=== PATIENT | male | born 1980 | race Hispanic/Latino ===

== ENCOUNTER 2020-07-29 11:13 | Emergency (ER) | payer SELFPAY ==
[2020-07-29 14:52] LABS: Alanine Aminotransferase 41 units/L (7-56); Albumin 4.8 g/dL (3.9-5); Blood Urea Nitrogen 11 mg/dL (9-20); Calcium 9.6 mg/dL (8.4-10.2); Hemolysis Index 4
[2020-07-29 14:54] LABS: BUN/Creatinine Ratio 16
--- NOTE | 2020-07-29 15:36 | Emergency Department Report ---
ED General Adult HPI - General Chief complaint: Hyperglycemia Stated complaint: ELEVATED BLOOD GLUCOSE PUI?: No Time Seen by Provider: 07/29/20 15:25 Source: patient Mode of arrival: Ambulatory Limitations: No Limitations - History of Present Illness Initial comments: Chief complaint: "My sugar is high." HPI: This is a 40-year-old male without significant past medical history who presents with mild fatigue. His friend checked his blood glucose which was elevated greater than 500. He took a friend's medication prior to arrival today. He took Metformin 1000 mg p.o. He feels better now. He denies any symptoms at this time. -: Gradual, days(s) (Several days) Improves with: none, medication (Medication) Worsens with: none Associated Symptoms: other (Fatigue) - Related Data Previous Rx's Medication Instructions Recorded Last Taken Type Metformin HCl [metFORMIN] 1 tab PO BID 90 Days #180 tablet 07/29/20 Unknown Rx Allergies Allergy/AdvReac Type Severity Reaction Status Date / Time No Known Allergies Allergy Unverified 07/29/20 11:32 ED Review of Systems ROS: Stated complaint: ELEVATED BLOOD GLUCOSE Other details as noted in HPI Comment: All other systems reviewed and negative Constitutional: malaise. denies: fever Respiratory: denies: cough, shortness of breath Cardiovascular: denies: chest pain Gastrointestinal: denies: abdominal pain, nausea, vomiting ED Past Medical Hx - Past Medical History Previous Medical History?: No - Surgical History Past Surgical History?: No - Social History Smoking Status: Unknown if ever smoked - Medications Home Medications: Home Medications Medication Instructions Recorded Confirmed Last Taken Type Metformin HCl [metFORMIN] 1 tab PO BID 90 Days #180 tablet 07/29/20 Unknown Rx ED Physical Exam - General Limitations: No Limitations General appearance: alert, in no apparent distress - Head Head exam: Present: atraumatic, normocephalic - Eye Eye exam: Present: normal appearance - ENT ENT exam: Present: mucous membranes moist - Neck Neck exam: Present: normal inspection, full ROM - Respiratory Respiratory exam: Present: normal lung sounds bilaterally. Absent: respiratory distress, wheezes, rales, rhonchi - Cardiovascular Cardiovascular Exam: Present: regular rate, normal rhythm, normal heart sounds. Absent: systolic murmur, diastolic murmur, rubs, gallop - GI/Abdominal GI/Abdominal exam: Present: soft, normal bowel sounds, diminished bowel sounds. Absent: distended, tenderness, guarding, rebound - Rectal Rectal exam: Present: deferred - Extremities Exam Extremities exam: Present: normal inspection - Neurological Exam Neurological exam: Present: alert, oriented X3 - Psychiatric Psychiatric exam: Present: normal affect, normal mood - Skin Skin exam: Present: warm, dry, intact, normal color. Absent: rash ED Course Vital Signs 07/29/20 07/29/20 11:27 15:04 Temperature 99.0 F Pulse Rate 99 H 82 Respiratory 20 18 Rate Blood Pressure 146/83 118/62 O2 Sat by Pulse 97 97 Oximetry ED Medical Decision Making - Lab Data Result diagrams: 07/29/20 13:28 Laboratory Results - last 24 hr 07/29/20 07/29/20 07/29/20 11:47 13:28 13:28 VBG pH 7.380 Sodium 137 Potassium 3.8 Chloride 96.7 L Carbon Dioxide 26 Anion Gap 18 BUN 11 Creatinine 0.7 L Estimated GFR > 60 BUN/Creatinine Ratio 16 Glucose 289 H POC Glucose 331 H Calcium 9.6 Total Bilirubin 0.50 AST 26 ALT 41 Alkaline Phosphatase 127 Total Protein 8.4 H Albumin 4.8 Albumin/Globulin Ratio 1.3 - Medical Decision Making This is a 40-year-old male with no significant past medical history who presents with new onset diabetes. No indication of ketoacidosis. Blood sugar 289. Patient was prescribed Metformin. Patient was given extensive verbal education regarding his diagnosis. Venous pH within normal limits. Anion gap 18. Bicarbonate 26. Critical care attestation.: If time is entered above; I have spent that time in minutes in the direct care of this critically ill patient, excluding procedure time. ED Disposition Clinical Impression: New onset type 2 diabetes mellitus Disposition: [id number] TO HOME OR SELFCARE Is pt being admited?: No Does the pt Need Aspirin: No Condition: Stable Instructions: Diabetes Mellitus Type 2 in Adults (ED) Prescriptions: Metformin HCl [metFORMIN] 1 tab PO BID 90 Days #180 tablet Referrals: SEGUNDO KEENAN MD [Staff Physician] - 3-5 Days Forms: Work/School Release Form(ED) Print Language: DANISH
[2020-07-29 17:12] VITALS: BP 118/64
== END 2020-07-29 16:00 | disposition home or self-care (01) ==
LOC: ED 11:13
DX: E11.9 Type 2 diabetes mellitus without complications (principal); Z79.899 Other long term (current) drug therapy
CPT/HCPCS: 36415; 80053; 82805; 82962; 99283